=== PATIENT | female | born 1955 | race American Indian/Alaskan Native ===

== ENCOUNTER 2017-01-22 21:18 | Emergency (ER) | payer OTHER ==
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
--- NOTE | 2017-01-22 23:16 | XRay Report ---
FINAL REPORT EXAM: XR ANKLE 3+V LT HISTORY: left ankle pain and swelling COMPARISON: None available. FINDINGS: Three views of left ankle obtained. There is a transverse nondisplaced fracture through the distal fibular tip. Soft tissue swelling. Ankle mortise preserved. There is an avulsive fracture fragment arising from the dorsum of the navicular bone. Fracture fragment measures 4 millimeters. IMPRESSION: Tiny avulsive fracture fragments at the distal fibular tip and dorsal margin of the navicular bone.
--- NOTE | 2017-01-22 23:45 | Ultrasound Report ---
FINAL REPORT PROCEDURE: US CHEST TECHNIQUE: Real-time sonography in multiple planes of the chest was performed with image documentation. CPT 29983 HISTORY: chest pain r/o cardiac contusion COMPARISON: No prior studies are available for comparison. FINDINGS: RIGHT chest: No significant fluid. LEFT chest: No significant fluid. IMPRESSION: The right and left hemithorax were visualized and showed no evidence of pleural effusion. If there is concern for cardiac contusion echocardiography would be recommended.
[2017-01-23 01:06] VITALS: BP 148/89
== END 2017-01-23 01:05 | disposition home or self-care (01) ==
LOC: ED 21:18
DX: S82.892A Other fracture of left lower leg, initial encounter for closed fracture (principal); S29.011A Strain of muscle and tendon of front wall of thorax, initial encounter; I10 Essential (primary) hypertension; Z88.2 Allergy status to sulfonamides; V49.88XA Car occupant (driver) (passenger) injured in other specified transport accidents, initial encounter; Y93.89 Activity, other specified; Y92.89 Other specified places as the place of occurrence of the external cause; Y99.8 Other external cause status
CPT/HCPCS: 36415; 76604; 84484; 93005; 93010

== ENCOUNTER 2017-01-28 16:15 | Emergency (ER) | payer OTHER ==
[2017-01-28 17:41] LABS: Basophils % (Auto) 0.9 % (0.0-1.8); Eosinophils % (Auto) 2.7 % (0.0-4.3); Hematocrit 36.6 % (30.3-42.9); Hemoglobin 11.8 gm/dl (10.1-14.3); Mean Corpuscular HGB Conc 32 % (30-34); Mean Corpuscular Volume 78 fl (79-97); Platelet Count 245 K/mm3 (140-440); Red Blood Count 4.71 M/mm3 (3.65-5.03); Red Cell Distribution Width 14.8 % (13.2-15.2); White Blood Count 2.8 K/mm3 (4.5-11.0)
[2017-01-28 17:42] LABS: Mean Corpuscular Hemoglobin 25 pg (28-32)
[2017-01-28 18:03] LABS: Anion Gap 17 mmol/L; BUN/Creatinine Ratio 13; Blood Urea Nitrogen 12 mg/dL (7-17); Calcium 10.9 mg/dL (8.4-10.2); Carbon Dioxide 27 mmol/L (22-30); Chloride 102.3 mmol/L (98-107); Glucose 88 mg/dL (65-100); Potassium 4.3 mmol/L (3.6-5.0); Sodium 142 mmol/L (137-145)
[2017-01-28 20:43] VITALS: BP 117/79
== END 2017-01-28 22:52 | disposition left against medical advice (07) ==
LOC: ED 16:15
DX: R07.9 Chest pain, unspecified (principal); Z53.21 Procedure and treatment not carried out due to patient leaving prior to being seen by health care provider
CPT/HCPCS: 36415; 80048; 84484; 85025; 93005; 93010

== ENCOUNTER 2018-02-20 10:33 | Outpatient (CLI) | payer MEDICARE ==
--- NOTE | 2018-02-20 15:51 | Ultrasound Report ---
ABDOMINAL ULTRASOUND: 02/20/18 10:33:00 CLINICAL: Abdominal pain and abnormal lab values. FINDINGS: High-resolution ultrasound demonstrates a borderline small liver with the right lobe measuring 13.2 cm in length. Normal liver contour and echogenicity. No liver nodularity or mass. Normal hepatic vasculature and inferior vena cava. The gallbladder is normally distended with some sludge but no stones. The gallbladder wall measures 1.5 mm. Normal intrahepatic and extrahepatic bile ducts. The common bile duct measures 3.9 mm diameter. The pancreas is not well imaged due to bowel gas or body habitus. Normal abdominal aorta measuring 2.1 cm maximum. A normal spleen measures 8.4 x 3.1 x 3.1 cm. the kidneys are normal size with normal non-dilated renal collecting systems and ureters. The right kidney measures 10.7 x 3.1 x 3.5 cm. The left kidney measures 9.2 x 3.8 x 3.7 cm. A few tiny echogenic non-shadowing foci in the right kidney upper pole. No renal mass or cysts. Normal renal contour and overall echogenicity. No ascites or mass. IMPRESSION: 1. A borderline small but otherwise normal liver. 2. Gallbladder is sludge but no cholelithiasis. 3. No biliary obstruction. 4. Limited imaging of the pancreas. 5. Possible nonobstructive small calculi in the upper pole the right kidney.
== END 2018-02-20 10:34 | disposition home or self-care (01) ==
LOC: SPVWC 10:33
PROVIDERS: ATTEND Internal Medicine
DX: R10.9 Unspecified abdominal pain (principal); R94.5 Abnormal results of liver function studies; I10 Essential (primary) hypertension
CPT/HCPCS: 76700